=== PATIENT | female | born 1985 | race Caucasian/White ===

== ENCOUNTER 2023-01-12 18:58 | Observation (INO) ==
[2023-01-12] MEDS ORDERED: ACETAMINOPHEN 1,000 MG/100 ML BAG IV ONE (20:50)
[2023-01-12] MEDS ORDERED: 0.9 % SODIUM CHLORIDE 1,000 ML IV ONE (20:51)
[2023-01-12] MEDS ORDERED: ONDANSETRON 4 MG/2 ML VIAL IV ONE ×2 (21:11→23:30)
--- NOTE | 2023-01-12 21:12 | Emergency Department Note ---
HPI General Chief complaint: Cold/Flu Symptoms Stated complaint: SOB, Covid + Time Seen by Provider: 01/12/23 19:23 Source: patient and family Mode of arrival: ambulatory Limitations: no limitations History of Present Illness HPI Narrative: 37-year-old female patient presents to the ER with complaints of worsening COVID symptoms. Patient tested positive on Wednesday and her symptoms have been gradually worsening over the weekend. She is describing more body aches, more fatigue and now chest heaviness. She denies cough but does feel short of breath. Patient has a history of complex regional pain syndrome and gets sympathetic nerve blocks as well as ketamine injections into her stomach. Its been 2 weeks since she has had a ketamine injection by Nell Palafox. She is describing some abdominal pain, but states it feels different than her usual pain. She is had some nausea and vomiting. She denies and is status post hysterectomy. Patient has not had COVID and she is not vaccinated for COVID as she has a reaction to the flu vaccines. She does have a history of bleeding gastric ulcer so cannot take ibuprofen. She states that she had a fever to 103 Fahrenheit on Wednesday. Today she is afebrile. Related Data Home Medications Medication Instructions Recorded Confirmed acetaminophen-caffeine 500 mg-65 1 tab PO PRN PRN Headache 10/03/20 05/13/22 mg tablet (Excedrin Tension Headache) hydrocodone 7.5 mg-acetaminophen 1 tab PO Q4H PRN Pain 10/03/20 05/13/22 325 mg tablet methocarbamol 750 mg tablet 1,500 mg PO BID 10/03/20 05/13/22 diclofenac sodium 1 % topical gel 2 g topical QID 01/16/21 05/13/22 pantoprazole 40 mg tablet,delayed 40 mg PO BID 01/16/21 05/13/22 release (Protonix) topiramate 100 mg tablet 100 mg PO QDAY 01/16/21 01/27/22 clindamycin phosphate 1 % lotion 1 applic topical QDAY 05/13/22 05/13/22 Allergies Allergy/AdvReac Type Severity Reaction Status Date / Time buprenorphine Allergy Severe Anaphylaxis Verified 05/13/22 12:35 NSAIDS (Non-Steroidal Allergy Unknown Unknown Verified 05/13/22 12:35 Anti-Inflamma pseudoephedrine AdvReac Intermediate Rash Verified 05/13/22 12:35 Nickel AdvReac Mild Rash Verified 05/13/22 12:35 Review of Systems ROS ROS Narrative: Narrative: All systems ED: reviewed and negative except as stated. [facility] Narrative Patient History Narrative: Narrative: Medical/Surgical/Family History All Active Problems (Updated 01/12/23 @ 22:29 by Blanca Evans PA-C) Neutropenia (Acute) COVID-19 (Acute) CRPS (complex regional pain syndrome) type I of lower limb (Acute) Wound healing, delayed (Chronic) Difficulty in walking (Chronic) Frequent headaches (Chronic) Painful swelling of joint (Chronic) Arthritis (Chronic) Heartburn (Chronic) Raynauds disease (Chronic) Duodenal ulcer (Chronic) Osteoarthritis of mandible (Chronic) TMJ disease (Chronic) Left ankle pain (Chronic) Left foot pain (Chronic) Medical History Arthritis CRPS (complex regional pain syndrome) type I of lower limb Difficulty in walking Duodenal ulcer Frequent headaches due to jaw Heartburn Left ankle pain Left foot pain Normal esophagogastroduodenoscopy (EGD) Osteoarthritis of mandible Painful swelling of joint Raynauds disease TMJ disease Wound healing, delayed Surgical History History of arthroscopy of right knee (~2001) History of esophagogastroduodenoscopy (EGD) 09/2020, 12/2020 History of foot surgery (~2007) Left bunions, hardware removed. Left foot harware removal, steroid injections in ankle-2020 History of hysterectomy (~03/2020) History of mandibular surgery Left:Arthroentesis-2010 & 2013, Arthrotomy-2011. Left and Right jaw joint a rthrocentesis, steroid injections-2016 History of wisdom tooth extraction (~2003) Family History Sister Spinal chordoma Arthritis Father High blood pressure Heart disease Diabetes Mother Arthritis Family/Other Diabetes Grandparent Social History Smoking Status: Never smoker Alcohol Intake Frequency: does not drink Substance Use: does not use Exam Narrative Narrative: General: AOx3, NAD, ill-appearing. Pleasant and conversant. HEENT: PERRL, EOMI, normocephalic. Chest: Symmetric, no pain to palpation Respiratory: Lungs clear to auscultation bilaterally. No respiratory distress. Unlabored breathing. Heart: Tachycardic rate and rhythm, no murmurs/clicks/rubs. Abdomen: Non-tender, Non distended, normal bowel tones. No organomegaly. Extremities: Warm and well perfused. No edema. DP 2+ bilaterally. No venous s tasis. Neuro: No focal deficits. Cranial nerves II-XII grossly normal. Skin: Warm dry, no rashes or lesions, no cyanosis. She has mottling and purple coloring to the bilateral hands and fingers. Capillary refill is somewhat slow, but still less than 2 seconds. She states this is consistent with her Raynaud's. Psych: Depressed mood and affect Heme/Lymph: No abnormal bruising General Limitations: no limitations Course Course Course Narrative: 37-year-old female presents with worsening COVID symptoms and tachycardia Reevaluation(s) Reevaluation #1: Obtain basic labs, hepatic panel, chest x-ray Give 1 L of IV fluids for tachycardia and IV Zofran Reevaluation #2: Chest x-ray is negative CBC with a WBC a absolute neutrophil count of 0.98 Hepatic panel with a mild transaminitis with AST of 49/ALT 45 Reevaluation #3: Patient has been given 1 L of IV fluids and her heart rate has improved to 85 bpm. Nausea has improved with Zofran Vital Signs Vital signs: Vital Signs Temperature 99.0 F 01/12/23 18:58 Pulse Rate 118 H 01/12/23 18:58 Respiratory Rate 20 01/12/23 18:58 Blood Pressure 135/96 01/12/23 18:58 Pulse Oximetry (%) 99 01/12/23 18:58 Oxygen Delivery Method Room Air 01/12/23 18:58 Temperature 99.0 F 01/12/23 18:58 Pulse Rate 85 01/12/23 22:03 Respiratory Rate 20 01/12/23 18:58 Blood Pressure 135/96 01/12/23 18:58 Pulse Oximetry (%) 98 01/12/23 22:03 Oxygen Delivery Method Room Air 01/12/23 22:03 [facility] MDM Narrative Medical decision making narrative: Severe COVID-19 infection Neutropenia Given the patient's neutropenia concern would be for progression to severe infection and sepsis. At this time I believe she is appropriate for admission and observation. I discussed case with Dr. Moses, hospitalist, who is agreed to admission. Lab Data 01/12/23 21:22 Labs: Lab Results 01/12/23 01/12/23 01/12/23 Range/Units 21:13 21:22 21:22 WBC 2.6 L (4.5-11.0) K/mcL RBC 5.06 (3.59-5.38) M/mcL Hgb 15.2 (11.2-15.7) g/dL Hct 45.2 H (34.1-44.9) % POC Hct 46.0 (36-48) MCV 89.3 (80.0-100.0) fL MCH 30.0 (26.0-34.0) pg MCHC 33.6 (31.0-36.0) g/dL RDW 13.3 (11.5-14.5) % Plt Count 197 (140-440) K/mcL MPV 9.8 (8.8-12.5) fL Immature Gran % (Auto) 0 (0.0-0.5) % Neut % (Auto) 37.0 L (38.0-78.0) % Lymph % (Auto) 47.0 (15.5-49.0) % [place] % (Auto) 15.2 H (1.0-12.0) % Eos % (Auto) 0.4 (0.0-7.0) % Baso % (Auto) 0.4 (0.0-2.0) % Lymph # (Auto) 1.24 L (1.50-4.80) K/mcL [place] # (Auto) 0.40 (0.10-0.90) K/mcL Eos # (Auto) 0.01 (0.00-0.70) K/mcL Baso # (Auto) 0.01 (0.00-0.30) K/mcL Immature Gran # 0 (0.00-0.05) K/mcl Absolute Neutrophils 0.98 L* (1.80-8.00) K/mcL POC Sodium 137 (133-145) POC Potassium 4.5 (3.3-5.1) POC Chloride 108 (96-108) POC Total CO2 14.0 L (22-30) POC BUN 7 (6-20) POC Creatinine 0.5 L (0.6-1.2) POC Glucose 64 L (70-105) POC WB Ioniz Calcium 1.20 (1.16-1.32) Total Bilirubin 0.2 (0.1-1.0) mg/dL Direct Bilirubin < 0.2 (0-0.3) mg/dL AST 49 H (<32) U/L ALT 45 H (<40) U/L Alkaline Phosphatase 61 (39-117) U/L Total Protein 7.8 (5.9-8.4) gm/dL Albumin 4.8 (3.2-5.2) gm/dL Globulin 3.0 (2.2-3.7) gm/dL Discharge Plan Patient/Caregiver Discharge Instructions Pt seen by HOT TAR ROOFER/PA only: Yes Clinical Impression: Neutropenia, COVID-19 Patient Disposition: Xfer As Inpt ([facility]) Follow up with: Gigi Martinez [Primary Care Provider] - Prescriptions: No Action Excedrin Tension Headache 500-65 mg Tablet 1 tab PO PRN PRN (Reason: Headache) methocarbamol 750 mg Tablet 1,500 mg PO BID hydrocodone-acetaminophen 7.5-325 mg Tablet 1 tab PO Q4H PRN (Reason: Pain) diclofenac sodium 1 % Gel 2 g TOPICAL QID topiramate 100 mg Tablet 100 mg PO QDAY pantoprazole [Protonix] 40 mg Tablet,Delayed Release (Dr/Ec) 40 mg PO BID clindamycin phosphate 1 % Lotion 1 applic TOPICAL QDAY
[2023-01-12 21:18] LABS: POC Calcium, Ionized 1.2 (1.16-1.32); POC Creatinine 0.5 (0.6-1.2); POC Potassium 4.5 (3.3-5.1)
[2023-01-12 21:53] LABS: Basophils # (Auto) 0.01 K/mcL (0.00-0.30); Basophils % (Auto) 0.4 % (0.0-2.0); Eosinophils # (Auto) 0.01 K/mcL (0.00-0.70); Eosinophils % (Auto) 0.4 % (0.0-7.0); Hematocrit 45.2 % (34.1-44.9); Hemoglobin 15.2 g/dL (11.2-15.7); Lymphocytes # (Auto) 1.24 K/mcL (1.50-4.80); Mean Cell Volume 89.3 fL (80.0-100.0); Mean Corpuscular HGB Conc 33.6 g/dL (31.0-36.0); Mean Platelet Volume 9.8 fL (8.8-12.5); Monocytes % (Auto) 15.2 % (1.0-12.0); Platelet Count 197 K/mcL (140-440); RBC 5.06 M/mcL (3.59-5.38); Red Cell Distribution Width 13.3 % (11.5-14.5); WBC 2.6 K/mcL (4.5-11.0)
[2023-01-12 22:09] LABS: ALT/SGPT 45 U/L (<40); AST/SGOT 49 U/L (<32); Albumin 4.8 gm/dL (3.2-5.2); Alkaline Phosphatase 61 U/L (39-117); Bilirubin,Direct < 0.2 mg/dL (0-0.3); Bilirubin,Total 0.2 mg/dL (0.1-1.0)
--- NOTE | 2023-01-12 23:13 | Internal Med History&Physical ---
HPI History of Present Illness Patient information: Note initiated : 01/12/23 at 11:08 pm Service Date, if different from initiated Date: [] Patient: Deanne Mansfield a 37 y/o F admitted on for SOB, Covid +. Chief Complaint: [General weakness, shortness of breath] Chief complaint: General weakness, shortness of breath History of present illness: Ms. Mansfield is a 37 year old F Raynauds disease, Complex Regional Pain Syndrome, duodenal ulcer, presenting with 6-day history of general body weakness, shortness of breath, fever, chills, nausea, vomiting, nasal congestions. She has not been vaccinated against COVID-pneumonia. She never had COVID before. Over the past 6-day, she is presenting with general body weakness, shortness of breath, fever, chills, nausea, vomiting, and nasal congestions. She was also experienced chest pressure. She was being diagnosed with COVID 5 days ago. She presented to our ED this evening due to worsening of her symptoms. Vital signs at ED presentations within normal limits and she is tolerating room air. Labs significant for leukopenia with WBC 2.6, and absolute neutrophil count 980. CMP also significant for mild transaminitis with AST and ALT of 49 and 45, respectively. Chest x-ray final results pending. Admission request is called for COVID-pneumonia. Constitutional Constitutional: Present chills, fever(s) and weakness; Absent excessive sweating or fatigue EENT Eyes: Absent blurry vision, change in vision, loss of vision or other visual disturbances Ears: Absent decreased hearing or tinnitus Nose, mouth and throat: Absent abnormal hearing, dry mouth, headache(s), nasal congestion or sore throat Cardiovascular Cardiovascular: Present chest pain; Absent chest pain at rest, edema, irregular heart rhythm or palpatations Respiratory Respiratory: Present cough and dyspnea; Absent wheezing Gastrointestinal Gastrointestinal: Present nausea and vomiting; Absent abdominal pain, constipation or diarrhea Musculoskeletal Musculoskeletal: Absent back pain, deformity, limited range of motion, muscle cramps, muscle weakness or numbness Integumentary Integumentary: Absent lesions, rash or wounds Neurological Neurological: Absent focal weakness, headache(s) or numbness Psychiatric Psychiatric: Absent anxiety, depression or hallucinations PFSH PFSH All Active Problems (Updated 01/12/23 @ 22:29 by Blanca Evans PA-C) Neutropenia (Acute) COVID-19 (Acute) CRPS (complex regional pain syndrome) type I of lower limb (Acute) Wound healing, delayed (Chronic) Difficulty in walking (Chronic) Frequent headaches (Chronic) Painful swelling of joint (Chronic) Arthritis (Chronic) Heartburn (Chronic) Raynauds disease (Chronic) Duodenal ulcer (Chronic) Osteoarthritis of mandible (Chronic) TMJ disease (Chronic) Left ankle pain (Chronic) Left foot pain (Chronic) Medical History Arthritis CRPS (complex regional pain syndrome) type I of lower limb Difficulty in walking Duodenal ulcer Frequent headaches due to jaw Heartburn Left ankle pain Left foot pain Normal esophagogastroduodenoscopy (EGD) Osteoarthritis of mandible Painful swelling of joint Raynauds disease TMJ disease Wound healing, delayed Surgical History History of arthroscopy of right knee (~2001) History of esophagogastroduodenoscopy (EGD) 09/2020, 12/2020 History of foot surgery (~2007) Left bunions, hardware removed. Left foot harware removal, steroid injections in ankle-2020 History of hysterectomy (~03/2020) History of mandibular surgery Left:Arthroentesis-2010 & 2013, Arthrotomy-2011. Left and Right jaw joint arthrocentesis, steroid injections-2016 History of wisdom tooth extraction (~2003) Family History Sister Spinal chordoma Arthritis Father High blood pressure Heart disease Diabetes Mother Arthritis Family/Other Diabetes Grandparent Social History (Updated 12/29/21 @ 10:48 by Montserrat Duncan) marital status: occupational status: employed occupation: elementary vocal music teacher, Classroom volunteer smoking status: Never smoker alcohol intake frequency: does not drink substance use type: does not use MEDS/ALLERGIES Home Medications and Allergies Home Medications Medication Instructions Recorded Confirmed Type acetaminophen-caffeine 500 mg-65 1 tab PO PRN PRN Headache 10/03/20 05/13/22 History mg tablet (Excedrin Tension Headache) hydrocodone 7.5 mg-acetaminophen 1 tab PO Q4H PRN Pain 10/03/20 05/13/22 History 325 mg tablet methocarbamol 750 mg tablet 1,500 mg PO BID 10/03/20 05/13/22 History diclofenac sodium 1 % topical gel 2 g topical QID 01/16/21 05/13/22 History pantoprazole 40 mg tablet,delayed 40 mg PO BID 01/16/21 05/13/22 History release (Protonix) topiramate 100 mg tablet 100 mg PO QDAY 01/16/21 01/27/22 History clindamycin phosphate 1 % lotion 1 applic topical QDAY 05/13/22 05/13/22 History Allergies Allergy/AdvReac Type Severity Reaction Status Date / Time buprenorphine Allergy Severe Anaphylaxis Verified 05/13/22 12:35 NSAIDS (Non-Steroidal Allergy Unknown Unknown Verified 05/13/22 12:35 Anti-Inflamma pseudoephedrine AdvReac Intermediate Rash Verified 05/13/22 12:35 Nickel AdvReac Mild Rash Verified 05/13/22 12:35 EXAM Constitutional Vitals: Temp Pulse Resp BP Pulse Ox O2 Del Method 37.2 C 85 20 135/96 98 Room Air 01/12/23 18:58 01/12/23 22:03 01/12/23 18:58 01/12/23 18:58 01/12/23 22:03 01/12/23 22:03 General appearance: cooperative, disheveled, mild distress and no acute distress Head Head exam: Present atraumatic and normocephalic Eye Eye exam: Present EOMI and PERRL ENT ENT exam: Present mucous membranes moist, normal exam and normal external ear exam Neck Neck exam: Present normal inspection; Absent lymphadenopathy, tenderness or thyromegaly Respiratory Respiratory exam: Absent accessory muscle use, respiratory distress or wheezes Cardiovascular Cardiovascular exam: Present normal rate and rhythm; Absent JVD GI/Abdominal GI/Abdominal exam: Present normal bowel sounds and soft; Absent organomegaly or tenderness Extremities Exam Extremities exam: Present full ROM, normal capillary refill and normal inspection; Absent tenderness Neurological Exam Neurological exam: Present alert, CN II-XII intact and oriented X3; Absent motor sensory deficit Psychiatric Psychiatric exam: Present normal affect and normal mood; Absent anxious or depressed Skin Skin exam: Present dry and intact DATA Data Completed and Pending Labs: Labs from last 24 hours 01/12/23 01/12/23 01/12/23 21:22 21:22 21:13 WBC 2.6 L RBC 5.06 Hgb 15.2 Hct 45.2 H POC Hct 46.0 MCV 89.3 MCH 30.0 MCHC 33.6 RDW 13.3 Plt Count 197 MPV 9.8 Immature Gran % (Auto) 0 Neut % (Auto) 37.0 L Lymph % (Auto) 47.0 [place] % (Auto) 15.2 H Eos % (Auto) 0.4 Baso % (Auto) 0.4 Lymph # (Auto) 1.24 L [place] # (Auto) 0.40 Eos # (Auto) 0.01 Baso # (Auto) 0.01 Immature Gran # 0 Absolute Neutrophils 0.98 L* POC Sodium 137 POC Potassium 4.5 POC Chloride 108 POC Total CO2 14.0 L POC BUN 7 POC Creatinine 0.5 L POC Glucose 64 L POC WB Ioniz Calcium 1.20 Total Bilirubin 0.2 Direct Bilirubin < 0.2 AST 49 H ALT 45 H Alkaline Phosphatase 61 Total Protein 7.8 Albumin 4.8 Globulin 3.0 A/P Assessment and plan (1) CRPS (complex regional pain syndrome) type I of lower limb: Status: Acute (2) COVID-19: Status: Acute (3) Raynauds disease: Status: Chronic (4) Duodenal ulcer: Status: Chronic Narrative A/P Narrative: Assessment and Plans: 1. CoVID pneumonia: Observation med surg Isolation: airborne and contact Supplemental oxygen therapy as needed titrate to achieve spo2>=92% Paxlovid Acute phase reactants Lactic acid Procalcitonin level Blood culture cbc w/ auto diff in the morning to trend WBC 2. Raynaud's disease: Continue to monitor 3. Complex Regional Pain Syndrome: [place] Morphine 4. Duodenal ulcer, history of: Protonix GI ppx: Protonix DVT ppx: Lovenox Code status: Full Prognosis: guarded Disposition: observation med surg Time Spent With Patient Time: Total time spent is greater than 50% in coordination of care (as documented) at patient's floor/unit and/or counseling patient: Initial: Total time with patient: 55 - 74 minutes
[2023-01-12] MEDS ORDERED: ONDANSETRON 4 MG/2 ML VIAL ONE (23:31)
[2023-01-12] MEDS ORDERED: traZODone HCL 50 MG TABLET PO PRN (23:44)
[2023-01-12] MEDS ORDERED: guaiFENesin/DEXTROMETHORPHAN 5ML UD CUP PO PRN (23:44)
[2023-01-12] MEDS ORDERED: IPRATROPIUM/ALBUTEROL 3 ML AMPUL.NEB NEB PRN (23:44)
[2023-01-12] MEDS ORDERED: morphine 4 MG/ML VIAL IV PRN (23:44)
[2023-01-12] MEDS: 0.9 % SODIUM CHLORIDE 1,000 ML IV SCH (23:45)
[2023-01-13 00:52] LABS: C-Reactive Protein 0.4 mg/dL (0.03-0.80)
[2023-01-13 00:53] LABS: Prothrombin Time 13.6 sec (11.9-14.5)
[2023-01-13] MEDS: NIRMATRELVIR/RITONAVIR 1 EACH BOX PO SCH ×3 (01:00→19:56)
[2023-01-13 01:14] LABS: Ferritin 319.2 ng/mL (13.0-150.0)
[2023-01-13] MEDS ORDERED: ACETAMINOPHEN 325 MG TABLET PO ONE (02:59)
[2023-01-13] MEDS: ACETAMINOPHEN 325 MG TABLET PO PRN (03:01)
[2023-01-13] MEDS: 0.9 % SODIUM CHLORIDE 10 ML SYRINGE IV SCH ×3 (06:48→21:02)
[2023-01-13] MEDS: ONDANSETRON 4 MG/2 ML VIAL IV PRN ×2 (06:58→15:01)
--- NOTE | 2023-01-13 07:44 | XRay Report ---
HISTORY: Short of breath, Covid positive FINDINGS: The lungs are clear and well-expanded, without evidence of pneumonia or fibrosis. No mass, adenopathy or pleural effusion are present. The heart size and pulmonary vasculature are normal. IMPRESSION: Normal exam Interpreted and Authenticated by: Ciro King 01/13/23
[2023-01-13 07:46] LABS: ALT/SGPT 34 U/L (<40); AST/SGOT 36 U/L (<32); Albumin/Globulin Ratio 1.5 (1.0-2.3); Alkaline Phosphatase 53 U/L (39-117); Bilirubin,Total 0.2 mg/dL (0.1-1.0); Blood Urea Nitrogen 5 mg/dL (6-20); Carbon Dioxide 14 mmol/L (22-30); Chloride 104 mmol/L (96-108); Globulin 2.6 gm/dL (2.2-3.7); Glomerular Filtration Rate 117; Glucose 60 mg/dL (70-105)
[2023-01-13 07:52] LABS: Basophils # (Auto) 0.01 K/mcL (0.00-0.30); Basophils % (Auto) 0.5 % (0.0-2.0); Eosinophils # (Auto) 0.02 K/mcL (0.00-0.70); Eosinophils % (Auto) 0.9 % (0.0-7.0); Hematocrit 39.8 % (34.1-44.9); Hemoglobin 13.4 g/dL (11.2-15.7); Lymphocytes # (Auto) 0.99 K/mcL (1.50-4.80); Lymphocytes % (Auto) 45.2 % (15.5-49.0); Mean Cell Volume 88.8 fL (80.0-100.0); Mean Corpuscular HGB Conc 33.7 g/dL (31.0-36.0); Mean Platelet Volume 9.7 fL (8.8-12.5); Monocytes # (Auto) 0.33 K/mcL (0.10-0.90); Monocytes % (Auto) 15.1 % (1.0-12.0); Neutrophils % (Auto) 38.3 % (38.0-78.0); Platelet Count 180 K/mcL (140-440); RBC 4.48 M/mcL (3.59-5.38); Red Cell Distribution Width 13.2 % (11.5-14.5); WBC 2.2 K/mcL (4.5-11.0)
[2023-01-13] MEDS ORDERED: METHOCARBAMOL 750 MG TABLET PO PRN (09:01)
[2023-01-13] MEDS ORDERED: ACETAMINOPHEN CAFFEINE PO PRN (09:01)
[2023-01-13] MEDS ORDERED: CLINDAMYCIN PHOSPHATE 1% TOPICAL PRN (09:06)
[2023-01-13] MEDS ORDERED: DICLOFENAC SODIUM 1% TOPICAL PRN (09:07)
[2023-01-13] MEDS: HYDROCODONE/APAP 7.5/325MG TABLET PO PRN ×3 (09:15→21:10)
[2023-01-13] MEDS: 0.9 % SODIUM CHLORIDE 1,000 ML IV SCH ×2 (09:15→19:07)
[2023-01-13] MEDS: ENOXAPARIN 40 MG/0.4 ML SYRINGE SQ SCH (09:16)
[2023-01-13] MEDS: DOCUSATE SODIUM 100 MG CAPSULE PO SCH ×2 (09:27→19:56)
--- NOTE | 2023-01-13 11:33 | Internal Med Progress Note ---
SUBJECTIVE Subjective Patient information: Note initiated : 01/13/23 at 11:27 am Service Date, if different from initiated Date: [] Patient: Deanne Mansfield a 37 y/o F admitted on 01/12/23 for SOB, Covid +. Chief Complaint: [] Interval history: Ms. Mansfield is a 37 year old F Raynauds disease, Complex Regional Pain Syndrome, duodenal ulcer, presenting with 6-day history of general body weakness, shortness of breath, fever, chills, nausea, vomiting, nasal congestions. She has not been vaccinated against COVID-pneumonia. She never had COVID before. Over the past 6-day, she is presenting with general body weakness, shortness of breath, fever, chills, nausea, vomiting, and nasal congestions. She was also experienced chest pressure. She was being diagnosed with COVID 5 days ago. She presented to our ED this evening due to worsening of her symptoms. Vital signs at ED presentations within normal limits and she is tolerating room air. Labs significant for leukopenia with WBC 2.6, and absolute neutrophil count 980. CMP also significant for mild transaminitis with AST and ALT of 49 and 45, respectively. Chest x-ray final results pending. Admission request is called for COVID-pneumonia. 01/13: Afebrile overnight. Patient still on room air. WBC 2.2, ANC 840. Patient is still complaining of general weakness. She is coming of shortness of breath. She is coming of nasal congestions. She is coming of nausea. She denies fever chills or diaphoresis. She denies cough or wheezing. She refused to take Paxlovid because she said that she is allergic to lactose and she will have explosive diarrhea and not nausea vomiting from taking it. Continue to provide supplemental oxygen therapy as needed. Continue to encourage patient to try taking Paxlovid. Continue daily CBC with auto differential to monitor WBC and ANC. Constitutional Vitals: Vital Signs Temp Pulse Resp BP Pulse Ox O2 Del Method 36.2 C 85 20 127/93 100 Room Air 01/13/23 08:00 01/13/23 08:00 01/13/23 08:00 01/13/23 08:00 01/13/23 08:00 01/13/23 08:00 Period Temp Pulse Resp BP Sys/Roberts Pulse Ox O2 Del Method O2 Flow Rate Last 24 Hr 36.2 C-37.2 C 82-118 16-24 126-135/89-96 98-100 Room Air-Room Air Intake and Output 01/12/23 01/13/23 01/13/23 19:59 03:59 11:59 Intake Total 1100 950 Output Total 800 850 Balance 300 100 Weight 77.111 kg 75.977 kg Intake & Output: Intake & Output 01/12/23 01/13/23 01/13/23 19:59 03:59 11:59 Intake Total 1100 950 Output Total 800 850 Balance 300 100 Weight 77.111 kg 75.977 kg Intake: IV 1100 950 Sodium Chloride 0.9% 1,000 ml @ 1000 950 100 mls/hr IV .Q10H [facility] Rx#: [id number] Output: Void Amount 800 850 General appearance: average body habitus, cooperative and no acute distress Head Head exam: Present atraumatic and normal inspection Eye Eye exam: Present normal appearance ENT ENT exam: Present mucous membranes moist, normal exam and normal external ear exam Neck Neck exam: Present normal inspection Respiratory Respiratory exam: Present normal respiratory exam Cardiovascular Cardiovascular exam: Present normal rate and rhythm GI/Abdominal GI/Abdominal exam: Present normal bowel sounds Back Exam Back exam: Present normal inspection Neurological Exam Neurological exam: Present alert and oriented X3 Skin Skin exam: Present intact and warm OBJ DATA Labs 01/13/23 06:05 01/13/23 06:05 Labs: Abnormal Lab Results 01/13/23 01/13/23 01/12/23 06:05 06:05 21:22 WBC 2.2 L Hct Neut % (Auto) [place] % (Auto) 15.1 H Lymph # (Auto) 0.99 L Absolute Neutrophils 0.84 L* Carbon Dioxide 14 L POC Total CO2 BUN 5 L POC Creatinine Glucose 60 L POC Glucose Calcium 8.0 L Ferritin 319.2 H AST 36 H ALT 01/12/23 01/12/23 01/12/23 21:22 21:22 21:13 WBC 2.6 L Hct 45.2 H Neut % (Auto) 37.0 L [place] % (Auto) 15.2 H Lymph # (Auto) 1.24 L Absolute Neutrophils 0.98 L* Carbon Dioxide POC Total CO2 14.0 L BUN POC Creatinine 0.5 L Glucose POC Glucose 64 L Calcium Ferritin AST 49 H ALT 45 H Meds: Medications Acetaminophen (Acetaminophen 325 Mg Tablet) 650 mg PO Q6HP PRN; Protocol PRN Reason: Per Pain Protocol/Fever > 101 Last Admin: 01/13/23 03:01 Dose: 650 mg Hydrocodone Bitart/Acetaminophen (Hydrocodone/Apap 7.5/325mg Tablet) 1 tab PO Q4HP PRN PRN Reason: Pain Last Admin: 01/13/23 09:15 Dose: 1 tab Albuterol/Ipratropium (Ipratropium/Albuterol 3 Ml Ampul.Neb) 3 ml NEB Q4HRT PRN PRN Reason: Wheezing Docusate Sodium (Docusate Sodium 100 Mg Capsule) 100 mg PO BID [facility] Last Admin: 01/13/23 09:27 Dose: Not Given Enoxaparin Sodium (Enoxaparin 40 Mg/0.4 Ml Syringe) 40 mg SQ DAILY [facility] Last Admin: 01/13/23 09:16 Dose: 40 mg Guaifenesin (Guaifenesin/Dextromethorphan 5ml Ud Cup) 10 ml PO Q4HP PRN PRN Reason: Cough Sodium Chloride (Sodium Chloride 0.9%) 1,000 mls @ 100 mls/hr IV .Q10H [facility] Last Admin: 01/13/23 09:15 Dose: 100 mls/hr Methocarbamol (Methocarbamol 750 Mg Tablet) 1,500 mg PO BIDP PRN PRN Reason: Muscle Spasm Morphine Sulfate (Morphine 4 Mg/Ml Vial) 4 mg IV Q4HP PRN; Protocol PRN Reason: Per Pain Protocol Nirmatrelvir/Ritonavir (Nirmatrelvir/Ritonavir 1 Each Box) 1 each PO BID [facility] Stop: 01/17/23 09:01 Last Admin: 01/13/23 09:27 Dose: Not Given Ondansetron HCl (Ondansetron 4 Mg/2 Ml Vial) 4 mg IV Q6HP PRN PRN Reason: Nausea And Vomiting Last Admin: 01/13/23 06:58 Dose: 4 mg Pantoprazole Sodium (Pantoprazole 40 Mg Tablet) 40 mg PO BID@0730,1630 [facility] Clindamycin (Phosphate 1 % Lotion) 1 dose TOPICAL DAILYP PRN PRN Reason: Acne Diclofenac Sodium 1 (% Gel) 2 dose TOPICAL QIDP PRN PRN Reason: Pain Senna (Sennosides 1 Tablet) 2 tab PO HS [facility] Sodium Chloride (0.9 % Sodium Chloride 10 Ml Syringe) 10 ml IV Q8 [facility] Last Admin: 01/13/23 06:48 Dose: Not Given Zolpidem Tartrate (Zolpidem 5 Mg Tablet) 5 mg PO HSP PRN PRN Reason: Insomnia A/P Assessment and plan (1) CRPS (complex regional pain syndrome) type I of lower limb: Status: Acute (2) COVID-19: Status: Acute (3) Raynauds disease: Status: Chronic (4) Duodenal ulcer: Status: Chronic Narrative A/P Narrative: Assessment and Plans: 1. CoVID pneumonia: Observation med surg Isolation: airborne and contact Supplemental oxygen therapy as needed titrate to achieve spo2>=92% She refused to take Paxlovid because she said that she is allergic to lactose and she will have explosive diarrhea and not nausea vomiting from taking it. Continue to encourage patient to try taking Paxlovid Acute phase reactants Lactic acid 0.9 Procalcitonin level 0.08 Blood culture, no growth to date cbc w/ auto diff in the morning to trend WBC 2. Raynaud's disease: Continue to monitor 3. Complex Regional Pain Syndrome: [place] Morphine 4. Duodenal ulcer, history of: Protonix GI ppx: Protonix DVT ppx: Lovenox Code status: Full Prognosis: guarded Disposition: observation med surg Time Spent With Patient Time: Total time spent is greater than 50% in coordination of care (as documented) at patient's floor/unit and/or counseling patient: Subsequent: Total time with patient: 35 - 49 minutes QUALITY VTE Deep Vein Thrombosis/Pulmonary Embolism Present on Admission: No
[2023-01-13] MEDS: PANTOPRAZOLE 40 MG TABLET PO SCH ×2 (11:47→17:57)
[2023-01-13] MEDS ORDERED: ZOLPIDEM 5 MG TABLET PO PRN (21:00)
[2023-01-13] MEDS ORDERED: SENNOSIDES 1 TABLET PO SCH (21:00)
[2023-01-14] MEDS: 0.9 % SODIUM CHLORIDE 1,000 ML IV SCH (04:48)
[2023-01-14] MEDS: 0.9 % SODIUM CHLORIDE 10 ML SYRINGE IV SCH ×2 (05:31→13:39)
[2023-01-14 07:07] LABS: Basophils # (Auto) 0.01 K/mcL (0.00-0.30); Basophils % (Auto) 0.5 % (0.0-2.0); Eosinophils # (Auto) 0.03 K/mcL (0.00-0.70); Eosinophils % (Auto) 1.5 % (0.0-7.0); Hematocrit 38.8 % (34.1-44.9); Hemoglobin 12.9 g/dL (11.2-15.7); Lymphocytes # (Auto) 0.79 K/mcL (1.50-4.80); Lymphocytes % (Auto) 39.5 % (15.5-49.0); Mean Cell Volume 89.2 fL (80.0-100.0); Mean Corpuscular HGB Conc 33.2 g/dL (31.0-36.0); Mean Platelet Volume 9.5 fL (8.8-12.5); Monocytes # (Auto) 0.37 K/mcL (0.10-0.90); Monocytes % (Auto) 18.5 % (1.0-12.0); Platelet Count 142 K/mcL (140-440); RBC 4.35 M/mcL (3.59-5.38); Red Cell Distribution Width 13.3 % (11.5-14.5)
[2023-01-14 07:34] LABS: ALT/SGPT 29 U/L (<40); AST/SGOT 29 U/L (<32); Albumin/Globulin Ratio 1.7 (1.0-2.3); Alkaline Phosphatase 50 U/L (39-117); Bilirubin,Total 0.3 mg/dL (0.1-1.0); Blood Urea Nitrogen 3 mg/dL (6-20); Calcium 8.2 mg/dL (8.6-10.4); Carbon Dioxide 15 mmol/L (22-30); Chloride 105 mmol/L (96-108); Globulin 2.3 gm/dL (2.2-3.7); Glomerular Filtration Rate 124; Glucose 64 mg/dL (70-105)
[2023-01-14] MEDS: DOCUSATE SODIUM 100 MG CAPSULE PO SCH (08:52)
[2023-01-14] MEDS: PANTOPRAZOLE 40 MG TABLET PO SCH (08:52)
[2023-01-14] MEDS: HYDROCODONE/APAP 7.5/325MG TABLET PO PRN (08:52)
[2023-01-14] MEDS: ENOXAPARIN 40 MG/0.4 ML SYRINGE SQ SCH (08:55)
[2023-01-14] MEDS: NIRMATRELVIR/RITONAVIR 1 EACH BOX PO SCH (09:01)
--- NOTE | 2023-01-14 10:11 | Discharge Summary ---
Discharge Provider Provider IMPORTANT FOLLOW-UP INFORMATION FOR PCP: Patient information: Note initiated : 01/14/23 at 10:08 am Service Date, if different from initiated Date: [] Patient: Deanne Mansfield 37 y/o F admitted on 01/12/23 for SOB, Covid +. Chief Complaint: [] Date of admission: 01/12/23 23:35 Discharge date: 01/14/23 Primary care physician: Gigi Martinez Attending physician on admission: Viet Moses Consults: 01/12/23 Consult to Physician [CONS] Stat Comment: Consulting Provider: Viet Moses Reason For Exam: Physician to Consult Attending physician on discharge: Viet Mccray Puandi COURSE Hospital Course Hospital course: Ms. Mansfield is a 37 year old F Raynauds disease, Complex Regional Pain Syndrome, duodenal ulcer, presenting with 6-day history of general body weakness, shortness of breath, fever, chills, nausea, vomiting, nasal congestions. She has not been vaccinated against COVID-pneumonia. She never had COVID before. Over the past 6-day, she is presenting with general body weakness, shortness of breath, fever, chills, nausea, vomiting, and nasal congestions. She was also experienced chest pressure. She was being diagnosed with COVID 5 days ago. She presented to our ED this evening due to worsening of her symptoms. Vital signs at ED presentations within normal limits and she is tolerating room air. Labs significant for leukopenia with WBC 2.6, and absolute neutrophil count 980. CMP also significant for mild transaminitis with AST and ALT of 49 and 45, respectively. Chest x-ray final results pending. Admission request is called for COVID-pneumonia. 01/13: Afebrile overnight. Patient still on room air. WBC 2.2, ANC 840. Patient is still complaining of general weakness. She is coming of shortness of breath. She is coming of nasal congestions. She is coming of nausea. She denies fever chills or diaphoresis. She denies cough or wheezing. She refused to take Paxlovid because she said that she is allergic to lactose and she will have explosive diarrhea and not nausea vomiting from taking it. Continue to provide supplemental oxygen therapy as needed. Continue to en courage patient to try taking Paxlovid. Continue daily CBC with auto differential to monitor WBC and ANC. 2/23: Discharged home. 1 week PCP follow up appointment made for her. All questions were answered prior to patient being physically discharged. Initial blood culture gram-positive cocci in 1 bottle. Differential diagnosis: Skin contamination. We will repeat blood culture prior to discharge. Discharge diagnosis: CoVID pneumonia Time Spent with Patient Time attestation: Total time spent providing and/or coordinating discharge services: Time spent: Less than 30 minutes EXAM Constitutional Vitals: Temp Pulse Resp BP Pulse Ox O2 Del Method 36.9 C 83 16 127/88 100 Room Air 01/14/23 09:04 01/14/23 09:04 01/14/23 09:04 01/14/23 09:04 01/14/23 09:10 01/14/23 09:10 General appearance: cooperative and no acute distress Head Head exam: Present atraumatic and normocephalic Eye Eye exam: Present EOMI and PERRL ENT ENT exam: Present mucous membranes moist, normal exam and normal external ear exam Neck Neck exam: Present normal inspection; Absent lymphadenopathy, tenderness or thyromegaly Respiratory Respiratory exam: Absent accessory muscle use, respiratory distress or wheezes Cardiovascular Cardiovascular exam: Present normal rate and rhythm; Absent JVD GI/Abdominal GI/Abdominal exam: Present normal bowel sounds and soft; Absent organomegaly or tenderness Extremities Exam Extremities exam: Present full ROM, normal capillary refill and normal inspection; Absent tenderness Neurological Exam Neurological exam: Present alert, CN II-XII intact and oriented X3; Absent motor sensory deficit Psychiatric Psychiatric exam: Present normal affect and normal mood; Absent anxious or depressed Skin Skin exam: Present dry and intact Discharge Data Data Completed and Pending Labs on day of discharge: Labs from last 24 hours 01/14/23 01/14/23 06:03 06:03 WBC 2.0 L RBC 4.35 Hgb 12.9 Hct 38.8 MCV 89.2 MCH 29.7 MCHC 33.2 RDW 13.3 Plt Count 142 MPV 9.5 Immature Gran % (Auto) 0 Neut % (Auto) 40.0 Lymph % (Auto) 39.5 Reeves % (Auto) 18.5 H Eos % (Auto) 1.5 Baso % (Auto) 0.5 Lymph # (Auto) 0.79 L Reeves # (Auto) 0.37 Eos # (Auto) 0.03 Baso # (Auto) 0.01 Immature Gran # 0 Absolute Neutrophils 0.80 L* Sodium 136 Potassium 4.0 Chloride 105 Carbon Dioxide 15 L Anion Gap 16.0 BUN 3 L Creatinine 0.5 L GFR Calculation 124 Glucose 64 L Calcium 8.2 L Total Bilirubin 0.3 AST 29 ALT 29 Alkaline Phosphatase 50 Total Protein 6.3 Albumin 4.0 Globulin 2.3 Albumin/Globulin Ratio 1.7 Preliminary micro results at discharge 01/12/23 00:45 Blood Culture - Preliminary Blood Gram positive cocci 01/12/23 06:05 Blood Culture - Preliminary Blood Discharge Plan Patient/Caregiver Discharge Instructions Activity: increase activity as tolerated Diet: Regular Diet Prescriptions: New dextromethorphan-guaifenesin 10-100 mg/5 mL Syrup 10 ml PO Q4HP PRN (Reason: Cough) Qty: 237 0RF Continued Excedrin Tension Headache 500-65 mg Tablet 1 tab PO PRN PRN (Reason: Headache) methocarbamol 750 mg Tablet 1,500 mg PO BID PRN (Reason: Muscle Spasm) hydrocodone-acetaminophen 7.5-325 mg Tablet 1 tab PO Q4H PRN (Reason: Pain) diclofenac sodium 1 % Gel 2 g TOPICAL QID PRN (Reason: Pain) pantoprazole [Protonix] 40 mg Tablet,Delayed Release (Dr/Ec) 40 mg PO BID clindamycin phosphate 1 % Lotion 1 applic TOPICAL QDAY PRN (Reason: Acne) Follow Up Plan Follow up with: Carolyn Grace ARNP [Nurse Practitioner] - 01/21/23 11:45 am (Please arrive 15 minutes prior to appointment time.) Patient Disposition: Home, Self-Care Rehab Potential: Good I certify that the patient requires SNF services: No Overall status at discharge: patient is progressing back to baseline Discharge Orders: Discharge Order (Routine); Ordered 01/14/23 Ordered By: Viet Moses QUALITY VTE Deep Vein Thrombosis/Pulmonary Embolism Present on Admission: No
[2023-01-14] MEDS: ACETAMINOPHEN 325 MG TABLET PO PRN (10:33)
== END 2023-01-14 13:43 | disposition home or self-care (01) ==
LOC: MEDSUR 18:58 → ED 18:58 → MEDSUR 23:45
PROVIDERS: ADMIT Internal Medicine; ATTEND Internal Medicine

== ENCOUNTER 2024-04-28 07:24 | Inpatient (IN) ==
[2024-04-28] MEDS ORDERED: IOPAMIDOL 100 ML BOTTLE IV ONE (07:25)
[2024-04-28 08:00] LABS: Basophils # (Auto) 0.02 K/mcL (0.00-0.30); Basophils % (Auto) 0.2 % (0.0-2.0); Eosinophils # (Auto) 0.03 K/mcL (0.00-0.70); Eosinophils % (Auto) 0.3 % (0.0-7.0); Hemoglobin 9.6 g/dL (11.2-15.7); Lymphocytes # (Auto) 1.04 K/mcL (1.50-4.80); Lymphocytes % (Auto) 10.5 % (15.5-49.0); Mean Cell Volume 93.5 fL (80.0-100.0); Mean Corpuscular HGB Conc 33.1 g/dL (31.0-36.0); Mean Platelet Volume 9.9 fL (8.8-12.5); Monocytes # (Auto) 0.54 K/mcL (0.10-0.90); Monocytes % (Auto) 5.4 % (1.0-12.0); Neutrophils % (Auto) 83.5 % (38.0-78.0); Platelet Count 282 K/mcL (140-440); Red Cell Distribution Width 12.6 % (11.5-14.5); WBC 9.9 K/mcL (4.5-11.0)
[2024-04-28] MEDS: ONDANSETRON 4 MG/2 ML VIAL IV ONE ×2 (08:00→12:20)
[2024-04-28] MEDS: 0.9 % SODIUM CHLORIDE 1,000 ML IV ONE (08:00)
[2024-04-28] MEDS: PANTOPRAZOLE 40 MG VIAL IV ONE (08:00)
[2024-04-28 08:25] LABS: ALT/SGPT 8 U/L (<40); AST/SGOT 16 U/L (<32); Albumin 4.2 gm/dL (3.2-5.2); Alkaline Phosphatase 49 U/L (39-117); Bilirubin,Total 0.2 mg/dL (0.1-1.0); Blood Urea Nitrogen 36 mg/dL (6-20); Calcium 8.7 mg/dL (8.6-10.4); Carbon Dioxide 22 mmol/L (22-30); Chloride 104 mmol/L (96-108); Globulin 2.1 gm/dL (2.2-3.7); Glomerular Filtration Rate 116; Glucose 152 mg/dL (70-105)
[2024-04-28] MEDS: fentaNYL 100 MCG/2 ML VIAL IV ONE (08:25)
[2024-04-28] MEDS: LIDOCAINE 4% TOP PATCH TOPICAL ONE (11:21)
[2024-04-28] MEDS ORDERED: KETAMINE 50 MG/ML ML IV PRN (11:31)
[2024-04-28] MEDS: PROPOFOL 200 MG/20 ML VIAL IV SCH (11:49)
[2024-04-28] MEDS: MIDAZOLAM 2 MG/2 ML VIAL IV SCH (11:49)
[2024-04-28] MEDS: EPINEPHrine 1 MG/ML VIAL IJ ONE (12:16)
[2024-04-28] MEDS ORDERED: HYDROmorphone 0.5 MG/0.5 ML SYRINGE IV PRN ×2 (13:02→14:08)
[2024-04-28] MEDS: PROMETHAZINE 25 MG/ML VIAL IV ONE (13:19)
[2024-04-28] MEDS ORDERED: ONDANSETRON 4 MG/2 ML VIAL IV PRN (14:42)
[2024-04-28] MEDS ORDERED: oxyCODONE/APAP 5/325MG TABLET PO PRN (14:46)
[2024-04-28] MEDS: morphine 4 MG/ML VIAL IV ONE (14:58)
[2024-04-28] MEDS: LACTATED RINGERS 1,000 ML IV ONE (14:58)
[2024-04-28] MEDS: 0.9 % SODIUM CHLORIDE 10 ML SYRINGE IV SCH (14:59)
[2024-04-28 15:53] LABS: Hematocrit 22.1 % (34.1-44.9); Hemoglobin 7.4 g/dL (11.2-15.7)
[2024-04-28] MEDS ORDERED: 0.9 % SODIUM CHLORIDE 250 ML IV SCH ×3 (16:00→18:15)
[2024-04-28] MEDS: LACTATED RINGERS 1,000 ML IV SCH (16:23)
[2024-04-28] MEDS: PANTOPRAZOLE 40 MG VIAL IV SCH (16:32)
[2024-04-28] MEDS ORDERED: PANTOPRAZOLE 40 MG PACKET PO SCH ×2 (17:00)
[2024-04-28] MEDS ORDERED: ACETAMINOPHEN 1,000 MG/100 ML BAG IV ONE ×2 (17:05→17:09)
== END 2024-04-28 17:40 | disposition short-term general hospital (02) | DRG 920 ==
LOC: ED 07:24 → SUR 11:22 → MEDSUR 13:45 → UNDODISIN 14:02
PROVIDERS: ADMIT Student in an Organized Health Care Education/Training Program; ATTEND Student in an Organized Health Care Education/Training Program